=== PATIENT | male | born 1985 | race African-American/Black ===

== ENCOUNTER 2018-08-29 23:56 | Emergency (ER) | payer OTHER ==
[~2018-08-29] VITALS: Ht 188 cm; Wt 72.6 kg
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
[2018-08-29] MEDS ORDERED: NKM (23:59)
[2018-08-30 00:04] VITALS: BP 120/87
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
[2018-08-30] MEDS ORDERED: IBUPROFEN600 MG ORAL (00:57)
[2018-08-30 02:00] VITALS: BP 120/87
--- NOTE | 2018-08-30 02:00 | NUR ---
ED Nurse Note: pt cleared to be d/c per ERMD, pt discharge and aftercare instruction provided w/ prescription, pt education done via discussion and handout, pt advised to follow up with pcp or return to ed if changes in condition, pt verbalized understanding and agrees with plan, vss, ambulatory w/ steady gait, left w/ all belongings. pt states he is taking uber home.
--- NOTE | 2018-08-30 16:46 | Diagnostic Imaging Report ---
Indication: Right foot pain, trauma Technique: 3 views right foot Comparison: none Findings: No acute fractures. No dislocations. The joint spaces are preserved. Impression: Negative
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
== END 2018-08-30 02:00 | disposition home or self-care (01) ==
LOC: EDBD 23:56 → EMR 08-30 00:11
DX: S80.11XA Contusion of right lower leg, initial encounter (principal); S93.501A Unspecified sprain of right great toe, initial encounter; V03.90XA Pedestrian on foot injured in collision with car, pick-up truck or van, unspecified whether traffic or nontraffic accident, initial encounter; Y92.410 Unspecified street and highway as the place of occurrence of the external cause
CPT/HCPCS: 99284